=== PATIENT | female | born 1955 | race Caucasian/White ===

== ENCOUNTER 2016-09-29 07:00 | Observation (INO) | payer OTHER ==
--- NOTE | ~2016-09-29 | CT4 ---
[facility] A Service of [facility] & [facility] RADIOLOGY TEXT RESULTS PATIENT: DAVONTE PALMA LOCATION: [facility] : 55 UNIT #: [id number] AGE: [address]: Michael Castle MD SEX: F ORDER DR: [id number] [facility] [address] [place], [place] [address] [id number] MR#: [id number] Acc #: [id number] NAME: DAVONTE PALMA : 1955 SEX: F STUDY DATE/TIME: 09/29/2016 8:46 UNIT: JOSETTE ROOM: STUDY DESCRIPTION: CT Abd and Pelv Wo Cont Attending Physician: Cassi Lugo M.D. Ordering Physician: Cassi Lugo M.D. Primary Care Physician: Betty Morales M.D. MEDICAL IMAGING REPORT This report is preliminary unless electronic signature is present EXAM CT of the abdomen and pelvis without contrast media HISTORY Right upper and right lower quadrant abdominal pain since 04:00 this morning. TECHNIQUE Transaxial imaging of the abdomen and pelvis was performed without contrast media. The patient has no prior imaging of the abdomen or pelvis. This CT exam was performed with one or more of the following radiation dose reduction techniques: automatic exposure control, adjustment of mA and/or kV according to patient size, and iterative reconstruction. FINDINGS Scans through the lung bases show some fibrotic changes in both bases. No acute-appearing infiltrates are seen. The heart size is normal. There is no evidence of pericardial or pleural fluid. Scans through the upper abdomen show a normal-appearing liver and gallbladder. The spleen is normal. The adrenal glands are unremarkable. Pancreas is normal. The left kidney is normal. The right kidney is hydronephrotic with perinephric edema. There is an obstructing stone in the right proximal ureter at the right ureteropelvic junction measuring approximately 2 mm in diameter. There is periureteral edema. Below this point, the ureter is of normal course and caliber to the bladder. No left-sided renal or ureteral stones are seen. There are no additional stones within the kidney. No dilated or thickened loops of bowel are seen. The uterus is surgically absent. The appendix is not seen. There is colonic diverticulosis present without diverticulitis. No pelvic masses or fluid collections are present. The bladder is unremarkable. [facility] A Service of [facility] & [facility] RADIOLOGY TEXT RESULTS PATIENT: DAVONTE PALMA LOCATION: [facility] [id number] : [birth year] UNIT #: [id number] AGE: [address]: Michael Castle MD SEX: F ORDER DR: CONCLUSION 1. Moderate right-sided hydronephrosis with perinephric and periureteral edema and a 2 mm obstructing stone at or just below the right ureteropelvic junction. 2. Postop changes of hysterectomy and presumably appendectomy. 3. Diverticulosis without evidence of diverticulitis. 4. 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 Dictated by... Jack Alba M.D. THIS IS AN ELECTRONICALLY VERIFIED REPORT Jack Alba M.D. at 10/01/2016 12:00 PM Quinten TD: 09/29/2016 12:14 JOB #: [id number] MEDICAL IMAGING REPORT Page 1 of 1 COPY
--- NOTE | ~2016-09-29 | HP ---
Unit #: [id number] #: [id number] Patient: DAVONTE PALMA [id number] [address] [place], [place] [address] [id number] MR#: [id number] NAME: DAVONTE PALMA. ROOM: [address]290 Age: 61 Sex: F Admission Date: 09/29/2016 : 1955 Attending Physician: Michael Castle M.D. Primary Care Physician: Betty Morales M.D. HISTORY AND PHYSICAL CHIEF COMPLAINT Right flank pain. HISTORY OF PRESENTING ILLNESS One-day onset of right flank pain, nausea, vomiting, presented to [facility] ED. CT scan showing a 2 to 3 mm right proximal mid ureteral calculi. Questionable peripelvic stranding versus extravasation. Pain was not controlled with medications and she was admitted for observation. White count was within normal limits at 11. Creatinine was within normal limits. UA was negative for infection, trace leukocyte esterase but nitrite negative. She is afebrile here in the emergency room. Of note her pain resolved about four hours ago and she thinks she may or may not have passed the stone. No prior history of stones. No history of recurrent urinary tract infections. REVIEW OF SYSTEMS All other systems were reviewed and negative excerpt for mention in the HPI. PAST MEDICAL HISTORY 1. Hypothyroidism. 2. History of hysterectomy. PAST SURGICAL HISTORY As above; she also did have an InterStim placement which was ineffective and removed by Dr. Acosta in 2016. MEDICATIONS Medications were reviewed in the chart and noted. ALLERGIES No known drug allergies. SOCIAL HISTORY Denies smoking, illicit drugs or alcohol use. FAMILY HISTORY Noncontributory. PHYSICAL EXAMINATION VITAL SIGNS: Afebrile. Vital signs stable. GENERAL: Normal appearance. No distress. HEAD: Normocephalic and atraumatic. Unit #: [id number] #: [id number] Patient: DAVONTE PALMA HEART: Regular rate and rhythm. LUNGS: Unlabored breathing on room air. ABDOMEN: Soft, nontender, nondistended. No CVA tenderness. EXTREMITIES: No clubbing, cyanosis or edema. Moves all extremities well. DIAGNOSTIC STUDIES Labs and imaging were reviewed and pertinent positives and negatives were noted in the HPI. ASSESSMENT 1. Right renal calculi. 2. Right renal colic. PLAN The patient seems to be doing very well right now. Will discuss with the patient about discharge and following up in the office with repeat ultrasound. Patient prefers to stay overnight just in case. Will allow her to eat tonight. N.p.o. at midnight. If pain recurs will plan on cysto, stent, possible ureteroscopy tomorrow. If doing well can discharge in the morning and follow up with Urology in one to two weeks. Dictated by Ross Ramirez/luis enrique TD: 09/29/2016 19:09 JOB #: [id number] HISTORY AND PHYSICAL Page 1 of 1 X SUSI GODINEZ MD X HISTORY AND PHYSICAL
[2016-09-29 06:43] LABS: POC - CKMB <1.0 ng/mL (0.0-7.9); POC - TROPONIN <0.05 ng/mL (<=0.05)
[~2016-09-29 07:00] MED LIST: DETROL; DITROPAN PO; DITROPAN5 MG PO; ESTRACE PO; SYNTHROID PO; Z-PACK PO; ZOCOR PO
[2016-09-29 07:24] LABS: BASOPHIL# 0.1 X10e3 (0-0.3); BASOPHIL% 1.1 % (0-2.5); DIFF IND NO; EOSINOPHIL# 0.1 X10e3 (0-0.7); EOSINOPHIL% 0.8 % (0.0-7.0); HEMATOCRIT 42.2 % (35.0-45.0); HEMOGLOBIN 14.2 gm/dL (12.0-16.0); LYMPHOCYTE# 2.4 X10e3 (1.0-3.5); LYMPHOCYTE% 21.5 % (17.0-45.0); MEAN CELL VOLUME 87.5 FL (83-96); MEAN CORPUSCULAR HEMOGLOBIN 29.4 PG (28-34); MEAN CORPUSCULAR HGB CONC 33.6 g/dL (30-36); MEAN PLATELET VOLUME 10.1 FL (6.5-11.5); MONOCYTE# 0.7 X10e3 (0-1.0); MONOCYTE% 6.2 % (3.0-12.0); NEUTROPHIL# 7.9 X10e3 (1.5-7.1); NEUTROPHIL% 70.4 % (40-75); PLATELET COUNT 248 X10e3 (140-420); RED BLOOD COUNT 4.82 X10e (3.90-5.30); RED CELL DISTRIBUTION WIDTH 13.1 % (11.0-15.5); WHITE BLOOD COUNT 11.2 X10e3 (4.0-10.5)
[2016-09-29 07:40] LABS: ALBUMIN SERUM 4.4 g/dL (3.5-5.0); ALKALINE PHOSPHATASE 74 U/L (32-92); ALT (SGPT) 17 U/L (10-40); AST (SGOT) 20 U/L (10-42); BILIRUBIN, DIRECT <0.1 mg/dL (0.0-0.2); BILIRUBIN,INDIRECT 0.7 mg/dL (0.0-0.9); BILIRUBIN,TOTAL 0.8 mg/dL (0.2-2.0); BLOOD UREA NITROGEN 15 mg/dL (9-23); BUN/CREATININE RATIO 18.75; CALCIUM SERUM 9.6 mg/dL (8.4-10.2); CARBON DIOXIDE 23 mmol/L (22-31); CHLORIDE 106 mmol/L (100-111); CREATININE SERUM 0.8 mg/dL (0.6-1.4); GLOM FILT RATE Estimated 79.6 mL/min (>60); GLUCOSE FASTING 148 mg/dL (70-110); POTASSIUM 3.8 mmol/L (3.5-5.1); PROTEIN TOTAL SERUM 7.5 g/dL (6.0-8.3); SODIUM 140 mmol/L (135-145)
[2016-09-29 08:49] LABS: URINE SOURCE CLEAN CATCH
[2016-09-29 08:55] LABS: URINE APPEARANCE CLEAR; URINE BILIRUBIN NEG (NEG); URINE BLOOD NEG (NEG); URINE COLOR YELLOW; URINE GLUCOSE 100 MG/DL (NEG); URINE KETONE NEG (NEG); URINE LEUKOCYTE ESTERASE TRACE (NEG); URINE NITRATE NEG (NEG); URINE PH 7.5 (5-8); URINE PROTEIN NEG (NEG); URINE SPECIFIC GRAVITY 1.015 (1.003-1.035); URINE UROBILINOGEN 0.2 MG/DL (NEG)
[2016-09-29 08:58] LABS: CULTURE INDICATED? YES; U HYALINE CASTS AUWI 0-2 /[LPF]; URINE BACTERIA AUWI NEG (NEGATIVE); URINE SQUAMOUS EPITHELIAL CELL NONE SEEN /[HPF]
[2016-09-29] MEDS ORDERED: SYNTHROID PO ×2 (19:39)
== END 2016-09-30 09:46 | disposition home or self-care (01) | DRG 694 ==
LOC: CED 07:00 → CEDOF 12:00
PROVIDERS: Emergency Medicine
DX: N13.2 Hydronephrosis with renal and ureteral calculous obstruction (principal); K57.90 Diverticulosis of intestine, part unspecified, without perforation or abscess without bleeding; M41.9 Scoliosis, unspecified; M47.896 Other spondylosis, lumbar region; E03.9 Hypothyroidism, unspecified; Z90.710 Acquired absence of both cervix and uterus
CPT/HCPCS: 36415; 74176; 80048; 80076; 81003; 82553; 83605; 84484; 85025; 87086; 96361; 96374; 96375; 96376; 99285; G0378; J2270; J2405